=== PATIENT | female | born 1990 | race Caucasian/White ===

== ENCOUNTER 2019-07-08 06:35 | Day surgery (SDC) | payer MEDICAID ==
[2019-07-07 15:14] LABS: BASOPHILS # (AUTO) 0.1 X10'3 (0-0.2); EOSINOPHILS # (AUTO) 0.4 X10'3 (0-0.9); EOSINOPHILS % (AUTO) 4.8 % (0-6); LYMPHOCYTES # (AUTO) 2.8 X10'3 (1.1-4.8); LYMPHOCYTES % (AUTO) 37.9 % (21-51); MEAN CORPUSCULAR HEMOGLOBIN 31.1 PG (27.0-31.0); MEAN CORPUSCULAR HGB CONC 34.4 g/dL (33.0-36.5); MEAN CORPUSCULAR VOLUME 90.4 FL (78-98); MEAN PLATELET VOLUME 10.6 FL (7.4-10.4); MONOCYTES # (AUTO) 0.5 X10'3 (0-0.9); MONOCYTES % (AUTO) 7.5 % (2-12); NEUTROPHILS # (AUTO) 3.6 X10'3 (1.8-7.7); NEUTROPHILS % (AUTO) 48.8 % (42-75); PRE OP HEMATOCRIT 38.1 % (35.0-45.0); PRE OP HEMOGLOBIN 13.1 g/dL (12.0-16.0); PRE OP PLATELET COUNT 161 X10'3 (140-440); RED BLOOD COUNT 4.21 X10'6 (4.20-5.60); RED CELL DISTRIBUTION WIDTH 12.8 % (11.5-14.5)
[2019-07-07 15:36] LABS: HCG SERUM QL NEGATIVE
[2019-07-07 15:59] LABS: LARGE PLATELETS FEW; PLATELET ESTIMATE NORMAL
[2019-07-07 16:18] LABS: ALBUMIN 3.7 G/DL (3.4-5.0); ALKALINE PHOSPHATASE 70 IU/L (46-116); BLOOD UREA NITROGEN 12 MG/DL (7-18); BUN/CREATININE RATIO 16.9 (6.6-38.0); CHLORIDE 109 MMOL/L (99-107); CREATININE 0.71 MG/DL (0.40-0.90); PRE OP ALT 17 U/L (30-65); PRE OP ANION GAP 11 (8-16); PRE OP AST 13 U/L (10-37); PRE OP BILIRUB, TOTAL 0.5 MG/DL (0.0-1.0); PRE OP GLUCOSE 111 MG/DL (70-104); PRE OP POTASSIUM 3.8 MMOL/L (3.4-5.1); PRE OP SODIUM 143 MMOL/L (135-145); TOTAL CARBON DIOXIDE 22.7 MMOL/L (24-32); TOTAL PROTEIN 7.5 G/DL (6.4-8.2); eGFR > 90 ML/MIN
[~2019-07-08] VITALS: Ht 165.1 cm; Wt 79.4 kg
[~2019-07-08 06:35] MED LIST: NO HOME MEDS; famotidine 20mg tablet PO ONE; ringers solution, lacted 1,000 ML IV SCH
[2019-07-08 06:45] VITALS: BP 107/75
[2019-07-08] MEDS ORDERED: LIDOcaine 1% (10mg/ml) 2ml vial ONE (06:49)
[2019-07-08] MEDS ORDERED: ringers solution, lacted 1,000 ML IV SCH (07:19)
[2019-07-08] MEDS ORDERED: ondansetron/PF 4mg/2ml inj IV PRN (07:20)
[2019-07-08] MEDS ORDERED: meperidine/PF 25mg/ml syringe IV PRN ×3 (07:20)
[2019-07-08] MEDS ORDERED: fentaNYL/PF 50MCG/1 ML 2ML syringe ONE (07:29)
[2019-07-08] MEDS ORDERED: midazolam 2 mg/2 ml injection ONE (07:30)
[2019-07-08] MEDS ORDERED: propofol inj 20 ML IV ONE (07:32)
[2019-07-08] MEDS ORDERED: LIDOcaine 2% (20mg/ml) 5ml vial ONE (07:32)
[2019-07-08] MEDS ORDERED: rocuronium 10mg/ml inj IV ONE (07:32)
[2019-07-08] MEDS ORDERED: sevoflurane 250ml liquid IH ONE (08:30)
[2019-07-08] MEDS ORDERED: glycopyrrolate 0.2mg/ml inj ONE (08:55)
[2019-07-08] MEDS ORDERED: dexamethasone sod phosphate 4mg/ml inj. ONE (08:55)
[2019-07-08] MEDS ORDERED: ondansetron/PF 4mg/2ml inj ONE (08:55)
[2019-07-08] MEDS ORDERED: neostigmine methylsulfate 1 MG/ML 10ml vial ONE (08:55)
[2019-07-08 09:07] VITALS: BP 116/73
--- NOTE | 2019-07-08 09:07 | NUR ---
Received from OR via [facility] , accompanied by Anesthesiologist OMERO and report given by Anesthesiolgist. PATIENT WITH 20G PIV IN LEFT UE RUNNING LR AT 100, PATIENT IWTH VSS. ONE POKE SITE TO ABDOMEN. MEDICATED FOR PAIN UPON ARRIVAL. Addendum: 07/08/19 at 0927 by Samuel Hartman RN, RN Amended: Links added.
[2019-07-08 09:17] VITALS: BP 122/70
[2019-07-08 09:27] VITALS: BP 125/70
[2019-07-08 09:37] VITALS: BP 119/78
[2019-07-08 09:47] VITALS: BP 115/72
--- NOTE | 2019-07-08 09:57 | NUR ---
ALL DC CRITERIA HAS BEEN MET. IV TAKEN OUT WITHOUT COMPLICATIONS. ALL INSTRUCTIONS COVERED AND ALL QUESTIONS ANSWERED. DRESSINGS CDI. OUT VIA WHEELCHAIR TO PERSONAL VEHICLE WHERE PATIENT WAS SECURED IN AND DRIVEN HOME BY FAMILY. Addendum: 07/08/19 at 1015 by Samuel Hartman RN, RN Amended: Links added.
== END 2019-07-08 09:57 | disposition home or self-care (01) ==
LOC: PAS 06:35
PROVIDERS: ATTEND Obstetrics & Gynecology
DX: Z30.2 Encounter for sterilization (principal); F43.10 Post-traumatic stress disorder, unspecified; F32.9 Major depressive disorder, single episode, unspecified; F41.9 Anxiety disorder, unspecified; K21.9 Gastro-esophageal reflux disease without esophagitis; Z87.891 Personal history of nicotine dependence; Z98.890 Other specified postprocedural states; Z79.899 Other long term (current) drug therapy
CPT/HCPCS: 36415; 58670; 80053; 82948; 84703; 85025; J1100; J2001; J2175; J2250; J2405; J2704; J2710; J3010; J7120; A4618; A7000; J3490